=== PATIENT | male | born 1990 | race Caucasian/White ===

== ENCOUNTER → 2022-06-21 15:16 | Outpatient (BNVA) | payer OTHER, SELFPAY | PROVIDERS: PCP Family Medicine; Visit Provider Student in an Organized Health Care Education/Training Program | DX: M25.649 Stiffness of unspecified hand, not elsewhere classified (principal) | CPT/HCPCS: 99202 ==

== ENCOUNTER 2023-06-21 10:06 | Outpatient (AMB) | payer OTHER, SELFPAY ==
[2023-06-21 10:12] VITALS: BP 120/66; PULSE 96; O2SAT 99; BMI 21.4
--- NOTE | 2023-06-21 10:12 | A.OFFVIS_ITS ---
Intake Vital Signs 06/21/23 10:12 Height 6 ft Weight 157 lb 10.088 oz BMI 21.4 BP 120/66 Blood Pressure Location Rt brachial Position Sitting Pulse 96 Pulse Source Pulse Oximeter Pulse Oximetry (%) 99 Oxygen Delivery Method Room Air Intake Visit Reasons: 1 yr follow up Arthralgia/Myalgia/LVM Intake Note: Patient last seen 06/21/22 presents today for 1 yr follow up. Does not have a PCP at the moment. Reports rash under armpits; tension in hands; random aches and pains, fatigue and dry lips. 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 He continues to have aches and stiffness in his hands. It is improved with acupuncture. He does not take any medications for it. States that he gets rashes under his armpits when he uses deodorant. States that he gets fatigued easily, sometimes the fatigue comes in waves. If he does not sleep 8 hours at night he gets fatigued. He would like to get further testing. Initial history: This is a 31-year-old male with gout past medical history who presents for evaluation of a positive RAYNA. The condition started about a year ago when the patient waking up noticing 5 minutes of morning stiffness of his hands. Denies any swelling. No significant pain. Patient was referred to occupational therapy for his hands 2-3 months ago and noticed some improvement. 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 Denies any other swollen or painful joints. Denies any skin rashes. No weight changes. No fevers. No history of DVT/PE. No history suggestive of Raynaud's. States that his sister had a possible mini-stroke at age 36 . 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 [employer] Review of Systems Const Reports fatigue ENT Details: Chapped lips Musc Reports stiffness Skin/Breast Reports rash Endo Reports fatigue Physical Exam Vital Signs: Last Vital Signs Pulse 96 06/21/23 10:12 BP 120/66 06/21/23 10:12 Pulse Ox 99 06/21/23 10:12 Oxygen Delivery Method Room Air 06/21/23 10:12 BMI result Body Mass Index 21.4 Const General: cooperative, healthy appearing and comfortable Nutritional Appearance: average body habitus Orientation/consciousness: patient oriented x3 Limitations: no limitations HEENT Head: Yes normocephalic and Yes atraumatic Mouth: moist mucous membranes Resp Effort & Inspection: normal respiratory effort and able to speak in complete sen tences Auscultation: clear to auscultation bilaterally Cardio Rate: regular rate Rhythm: regular rhythm Heart sounds: S1 normal heart sound present and S2 normal heart sound present GI Inspection: No distended Palpation (GI): Soft to palpation and nontender Skin General skin exam: no rashes or lesions noted Neuro General: patient oriented x3 Extrem Other: No active synovitis or tender joints . Minimal osteoarthritic changes of both hands Normal nailfold capillaroscopy Results Reviewed Results Reviewed: Labs 2021 Ehrlichia/babesia/Borrelia burgdorferi/Lyme screen all negative Right femur x-ray Impression: no acute abnormality Labs 11/2021? ESR/CRP normal TSH 1.88? RAYNA 1-80 speckled? RF negative Assessment & Plan Assessment & Plan (1) Morning joint stiffness of hand: Code(s): M25.649 - Stiffness of unspecified hand, not elsewhere classified Qualifiers: Laterality: unspecified laterality Qualified Code(s): M25.649 - Stiffness of unspecified hand, not elsewhere classified Plan: This is a 32-year-old male who presented last year for evaluation of a positive RAYNA 1-80 speckled. This was done in the context of morning stiffness of hands. I did not find any evidence of an autoimmune rheumatic disease upon my evaluation. Today patient presents with ongoing symptoms. As well as waves of fatigue. Will order comprehensive serology to screen for underlying autoimmune rheumatic disease. Follow-up in 4 weeks Plan I spent 25 minutes reviewing patient's chart, evaluating patient, ordering diagnostic workup, counseling patient and documenting in the chart Orders: Orders DNA Double Stranded-Crithidia Today M32.9 - Systemic lupus erythematosus, unspecified Protein Creatinine Ratio, Ur Today M32.9 - Systemic lupus erythematosus, unspecified Complete Blood Count Auto Diff Today M32.9 - Systemic lupus erythematosus, unspecified Hepatitis A,B,C Profile Today Z11.59 - Encounter for screening for other viral diseases Immunofixation Pnl, Serum Today M32.9 - Systemic lupus erythematosus, unspecified Protein Electrophoresis, Serum Today M32.9 - Systemic lupus erythematosus, unspecified Cyclic Citrullinated Peptide Today M25.50 - Pain in unspecified joint Lupus Anticoagulant Panel Today D68.61 - Antiphospholipid syndrome RAYNA Reflex Titer and Pattern Today M32.9 - Systemic lupus erythematosus, unspecified Anti Extractable Nuclear Ag Today M32.9 - Systemic lupus erythematosus, unspecified Anti DNA DS Antibody Today M32.9 - Systemic lupus erythematosus, unspecified Complement C3 Today M32.9 - Systemic lupus erythematosus, unspecified Complement C4 Today M32.9 - Systemic lupus erythematosus, unspecified C Reactive Protein Today M32.9 - Systemic lupus erythematosus, unspecified Erythrocyte Sedimentation Rate Today M32.9 - Systemic lupus erythematosus, unspecified Sjogren's Antibodies Today M32.9 - Systemic lupus erythematosus, unspecified UA w Microscopic Today M32.9 - Systemic lupus erythematosus, unspecified Comprehensive Met. Panel Today M32.9 - Systemic lupus erythematosus, unspecified Rheumatoid Factor Today M25.50 - Pain in unspecified joint Beta-2 Glycoprotein Antibody Today D68.61 - Antiphospholipid syndrome Cardiolipin Antibodies Today D68.61 - Antiphospholipid syndrome Coding Level of Care Code Est Pt Level 4 (58647) Diagnoses Morning joint stiffness of hand, unspecified laterality M25.649 Laterality: unspecified laterality
== END 2023-06-21 10:42 | disposition home or self-care (01) ==
PROVIDERS: PCP Family Medicine; Visit Provider Student in an Organized Health Care Education/Training Program
DX: M25.649 Stiffness of unspecified hand, not elsewhere classified (principal)
CPT/HCPCS: 99214

== ENCOUNTER 2023-06-21 10:06 | Outpatient (REF) | payer OTHER, SELFPAY ==
[2023-06-21 11:17] LABS: MANUAL DIFF FLAG NO
[2023-06-21 12:04] LABS: Basophils Percent Auto 0.5 % (0-2); Eosinophils Absolute Auto 0.1 X10*3/uL (0.0-0.4); Eosinophils Percent Auto 3.5 % (0-4); Hematocrit 46.7 % (42.0-52.0); Hemoglobin 15.9 g/dl (14.0-18.0); Imm Gran Abs Auto 0.01 X10*3/uL (0.00-0.03); Imm Gran Pct Auto 0.2 % (0.0-0.4); Lymphocytes Absolute Auto 1.2 X10*3/uL (1.2-4.9); Lymphocytes Percent Auto 29.4 % (20-40); Mean Corpuscular Hemoglobin 28.4 pg (27.0-33.0); Mean Corpuscular Volume 83.4 fL (80.0-98.0); Mean Platelet Volume 11.3 fL (9.4-12.4); Monocytes Absolute Auto 0.5 X10*3/uL (0.1-1.2); Monocytes Percent Auto 11.7 % (2-11); Neutrophils Absolute Auto 2.2 x10*3/uL (2.0-8.3); Neutrophils Percent Auto 54.7 % (45-73); Platelet Count 164 X10*3/uL (160-400); Red Cell Distribution Width 11.9 % (11.0-16.0)
[2023-06-21 12:07] LABS: Appearance Urine Clear; Color Urine Dark Yellow; Glucose Urine UA Negative (Negative); Leukocyte Esterase Urine Negative (Negative); Nitrite Urine Negative (Negative); PH 5.5 (5.0-9.0); Specific Gravity - Urine 1.025 (1.005-1.025); Urine Blood Negative (Negative); Urine Ketones Trace mg/dL (Negative); Urine Protein Negative (Neg-Trace)
[2023-06-21 12:11] LABS: Bacteria Urine None Seen (None Seen); Hyaline Casts Urine 0-2 /LPF (0-2); RBC Urine 0-2 /HPF (0-2); Squamous Epithelial Cell Urine 0-2 /HPF (0-2); WBC Urine 0-5 /HPF (0-5)
[2023-06-21 12:38] LABS: Rheumatoid Factor < 13.0 IU/mL (<15.0)
[2023-06-21 12:39] LABS: Alanine Aminotransferase 11 U/L (0-40); Albumin Level 4.3 g/dL (3.5-5.0); Alkaline Phosphatase 67 U/L (39-117); Anion Gap 7 (12-20); Aspartate Amino Transferase 16 U/L (5-37); Bilirubin Total 0.7 mg/dL (0.0-1.0); Blood Urea Nitrogen 12 mg/dL (9-16); C Reactive Protein < 0.10 mg/dL (< or = 0.50); Calcium 9.4 mg/dL (8.4-10.2); Carbon Dioxide 29 mmol/L (22-29); Chloride 109 mmol/L (96-108); Estimated Glomerular Filt Rate > 60; Glucose Random 80 mg/dL (60-115); Potassium 3.8 mmol/L (3.3-5.1); Sodium 141 mmol/L (135-145)
[2023-06-21 12:47] LABS: Creatinine Urine 245.74 mg/dL; Protein/Creatinine Ratio, Ur 0.04 (<0.2); Total Protein Urine Random 10 mg/dL (<12)
[2023-06-21 12:50] LABS: Erythrocyte Sedimentation Rate 1 MM/HR (0-15)
[2023-06-21 13:04] LABS: HBS Num1 > 1000.00 mIU/mL (0-7.99); HBsAGNum1 0.32 S/CO (0.00-0.99); Hepatitis A Antibody IgM 0.16 Index (0-0.79); Hepatitis B Core Antibody Nonreactive (Nonreactive); Hepatitis B Surface Antigen Negative (Negative); ~HepC Num1 0.13 S/CO (0.00-0.79); ~Hepatitis A Antibody IgM Nonreactive (Nonreactive); ~Hepatitis B Surface Antibody REACTIVE (Nonreactive); ~Hepatitis C Antibody Nonreactive (Nonreactive)
[2023-06-22 15:09] LABS: IgA 171 mg/dL (47-310); IgG 971 mg/dL (600-1640); IgM 53 mg/dL (50-300)
[2023-06-22 15:38] LABS: Cyclic Citrullinated Peptide <16 UNITS
[2023-06-22 18:53] LABS: Prot Elec - Albumin 4.3 g/dL (3.8-4.8); Prot Elec - Alpha1 0.2 g/dL (0.2-0.3); Prot Elec - Alpha2 0.6 g/dL (0.5-0.9); Prot Elec - Beta 1 0.4 g/dL (0.4-0.6); Prot Elec - Beta 2 0.3 g/dL (0.2-0.5); Prot Elec - Gamma 0.8 g/dL (0.8-1.7); Prot Elec - Total Protein 6.6 g/dL (6.1-8.1)
[2023-06-24 15:53] LABS: Anti Nuclear Antibody Screen POSITIVE (NEGATIVE); Anti Nuclear Antibody Titer 1:40 titer
[2023-06-26 07:13] LABS: Complement C3 114 mg/dL (82-185)
[2023-06-27 06:49] LABS: DNAds, Crithidia Antibody Negative (Negative)
[2023-06-28 14:59] LABS: Anti DNA DS Antibody 1 IU/mL; Antibody to SS-A Antigen <1.0 NEG AI (<1.0 NEG); Antibody to SS-B Antigen <1.0 NEG AI (<1.0 NEG); SM/Ribonucleoprotein Ab <1.0 NEG AI (<1.0 NEG); Smith Protein <1.0 NEG AI (<1.0 NEG)
== END 2023-06-21 10:07 | disposition home or self-care (01) ==
LOC: HO.LAB 10:06
PROVIDERS: Visit Provider Student in an Organized Health Care Education/Training Program
DX: Z11.59 Encounter for screening for other viral diseases (principal); M32.9 Systemic lupus erythematosus, unspecified; M25.641 Stiffness of right hand, not elsewhere classified; M25.50 Pain in unspecified joint; Z72.89 Other problems related to lifestyle
CPT/HCPCS: 36415; 80053; 81001; 82570; 82784; 84156; 84165; 85025; 85652; 86038; 86039; 86140; 86160; 86200; 86225; 86235; 86255; 86334; 86431; 86704; 86706; 86709; 86803; 87340